=== PATIENT | female | born 1985 | race Caucasian/White ===

== ENCOUNTER 2016-12-14 20:17 | Outpatient (CLI) | payer OTHER ==
[~2016-12-14] VITALS: Ht 172.7 cm; Wt 68.0 kg
[2016-12-14 20:41] VITALS: Ht 172.7 cm; Wt 68.0 kg
[2016-12-14 20:42] VITALS: BP 108/63; PULSE 74; RESP 18
[2016-12-14 22:03] LABS: ADD SCAN DIFF NO
[2016-12-14 22:07] LABS: BASOPHILS % 0.3 % (0.0-2.0); EOSINOPHILS % 0.7 % (0.0-7.0); HEMATOCRIT 31.7 % (37.0-47.0); HEMOGLOBIN 11.1 g/dl (12.0-16.0); LYMPHOCYTES # 2.4 10^3/ul (0.8-2.9); LYMPHOCYTES % 39.3 % (15.0-51.0); MEAN CORPUSCULAR HEMOGLOBIN 31.5 pg (29.0-33.0); MEAN CORPUSCULAR VOLUME 90.1 fl (82.0-101.0); MEAN PLATELET VOLUME 11.4 fl (7.4-10.4); MONOCYTE # 0.5 10^3/ul (0.3-0.9); MONOCYTES % 8.5 % (0.0-11.0); NEUTROPHIL # 3.1 10^3/ul (1.6-7.5); NEUTROPHILS % 50.9 % (39.0-77.0); PLATELET COUNT 185 10^3/UL (140-415); RED BLOOD COUNT 3.52 10^6/ul (4.20-5.40); RED CELL DISTRIBUTION WIDTH 12.3 % (11.5-14.5); WHITE BLOOD COUNT 6.1 10^3/ul (4.8-10.8)
[2016-12-14 22:09] LABS: ADD UMIC NO; URINE BILIRUBIN (Dip) NEGATIVE (NEGATIVE); URINE BLOOD (Dip) NEGATIVE (NEGATIVE); URINE COLOR LT. YELLOW (YELLOW); URINE GLUCOSE (Dip) NEGATIVE (NEGATIVE); URINE KETONES (Dip) NEGATIVE (NEGATIVE); URINE LEUKOCYTE ESTERASE (Dip) NEGATIVE (NEGATIVE); URINE NITRITE (Dip) NEGATIVE (NEGATIVE); URINE TOTAL PROTEIN (Dip) NEGATIVE (NEGATIVE); URINE UROBILINOGEN (Dip) 0.2 E.U./dL (0.1-1.0)
[2016-12-14 22:26] LABS: ALBUMIN 3.6 g/dl (3.3-4.9); ALBUMIN/GLOBULIN RATIO 1.16; BILIRUBIN,INDIRECT 0.1 mg/dl (0-1.1); BILIRUBIN,TOTAL 0.1 mg/dl (0.2-1.3); CALCIUM 8.9 mg/dl (8.4-10.2); CREATININE 0.41 mg/dl (0.44-1.00); POTASSIUM 3.9 mmol/L (3.5-5.1); TOTAL PROTEIN 6.7 g/dl (6.1-8.1)
--- NOTE | 2016-12-14 23:55 | RADRPT ---
PROCEDURE: US Abdomen. CLINICAL INDICATION: Right upper quadrant pain. TECHNIQUE: Multiple real-time images were acquired of the patient's abdomen and retroperitoneum ut ilizing a high resolution transducer. COMPARISON: None FINDINGS: The liver demonstrates normal echogenicity and size and no focal lesions are seen. No gallstones ar e identified within the gallbladder. There is no pericholecystic fluid or gallbladder wall thickeni ng. No intra or extrahepatic biliary dilatation is seen. The common bile duct measures 2.8 mm in ma ximal dimension. The pancreas is not well seen due to bowel gas. There is no splenomegaly. No guanakito e fluid is identified. Right kidney measures 11.6 cm in length. There is mild right hydronephrosis. The left kidney measur es 11.4 cm in length and is unremarkable. The proximal aorta measures 1.3 cm in transverse dimension . The mid aorta measures 1.4 cm in transverse dimension. The inferior vena cava is unremarkable. IMPRESSION: Pancreas not well seen. Mild right hydronephrosis. Otherwise unremarkable examination. Single live intrauterine is incidentally noted. RPTAT: HJES .Emil Chong MD, MD Date Time Electronically viewed and signed by .Emil Chong MD, on 12/14/2016 23:55 .S/
[2016-12-15] MEDS ORDERED: PRENAT PO (00:57)
--- NOTE | 2016-12-15 01:11 | HP ---
Date/Time of Note Date/Time of Note DATE: 12/15/16 TIME: 00:59 OB - History Hx of Present Free Text/Dictation 31 y,o primigravida presented at triage with c/o RUQ pain rt upper back pain which was unbearable pain was 10/10 along with nausea mild diarrhea, denies febrile episodes according to patient, resting will alleviate , aggreviates after activities evaluate GB by U/S and other blood lab Past Family/Social History * Past Medical, Surgical, Family and Obstetric Histories reviewed from chart. OB Admission Exam Vital Signs Vital Signs Vital Signs Date Time Temp Pulse Resp B/P Pulse Ox O2 Delivery O2 Flow Rate FiO2 12/14/16 20:42 97.8 74 18 108/63 Room Air Physical Exam HEENT: WNL Heart: Rhythm Normal Lungs: Clear, Equal Abdomen: WNL Extremities: Normal Reflexes: Normal Cervical Dilatation: other Effacement: Other Station: Other Membranes: Intact Amniotic Fluid: Unevaluable Heart Rate: 140's Accelerations: Accelerations Present Decelerations: No Decelerations Varibility: Moderate Contractions on Admission: None Last 72 hours Lab Results CBC & BMP 12/14/16 21:54 Liver Function Test 12/14/16 21:54 Alanine Aminotransferase (ALT/SGPT) 40 Albumin 3.6 Alkaline Phosphatase 25 L Aspartate Amino Transf (AST/SGOT) 20 Direct Bilirubin 0.00 Total Protein 6.7 OB Assessment/Plan Reason for admission: other (RUQ pain with rt upper back pain) Other Assessment: pain resolved after resting Plan: Other (dis home with instruction of rest and avoid spice food rth if sx recur) IVELISSE MARTÍNEZ MD Dec 15, 2016 01:10
--- NOTE | 2016-12-15 01:12 | TRIAGE ---
OB Triage Datetime Report Generated by CPN: 12/15/2016 01:12 Datetime: 12/14/2016 22:00 Stage of : OB Triage Labor Evaluation Frequency: none Monitor Mode: External Pattern: Normal: <= 5 Contractions in 10 Minutes Resting Tone [place]: Relaxed Heart Rate FHR Baseline Rate: 140 Monitor Mode: External US Variability: Moderate 6-25 bpm Decelerations: Variable Category: Category I Comments: Appropriate for gestational age. Datetime: 12/14/2016 21:45 Stage of : OB Triage Datetime: 12/14/2016 21:02 Vaginal Exam Membrane Status: Intact Datetime: 12/14/2016 20:59 Stage of : OB Triage Labor Evaluation Frequency: none Monitor Mode: External Pattern: Normal: <= 5 Contractions in 10 Minutes Resting Tone [place]: Relaxed Heart Rate FHR Baseline Rate: 140 Monitor Mode: External US Variability: Moderate 6-25 bpm Decelerations: None Category: Category I Comments: appropriate for gestational age Pain Assessment Pain Scale: 10 Pain Presence: Intermittent Pain Type: Ache Pain Location: Abdomen; Back Pain Goal: 2 Pain Relief Measures: Comfort Measures Datetime: 12/14/2016 20:48 Assessment Type: Triage Maternal Assessment Level of Consciousness: Fully Conscious DTR's/Clonus: DTRs 2+; No Clonus Headache: Denies Blurred Vision: No Respiratory Effort: Unlabored; Regular Rhythm; Equal Expansion Breath Sounds, Left: Clear and Equal Breath Sounds, Right: Clear and Equal Nausea/Vomiting: Denies RUQ Epigastric Pain: Denies Facial Edema: None Fall Risk Assessment History of Falling: (0) No Secondary Diagnosis: (0) No Ambulatory Aid: (0) Bedrest/Nurse Assist IV Therapy: (0) No Gait: (0) Normal/Bedrest/Immobile Mental Status: (0) Oriented to Own Ability Fall Score: 0 Fall Risk Score Definition: No Risk: No action required Comment: presented to triage c_o back pain and upper right abdominal pain. 05/28. placed on efm. call light with in reach. at bedside. Datetime: 12/14/2016 20:47 Time of Arrival: 12/14/2016 20:10 EGA: 20.6 Arrived By: Ambulatory Arrived From: Home Chief Complaint: back and abdomen pain Movement: Present Contractions: Denies/Absent Rupture of Membranes: Denies Vaginal Bleeding: None Vaginal Discharge: Denies Recent Sexual Intercouse: Denies Abdominal Trauma: Not Applicable Patient Complaints: None Time Provider Notified: 12/14/2016 21:00 Provider Notified: Lashanda Initial Plan: VS, EFM, Notify MD
== END 2016-12-15 01:08 | disposition home or self-care (01) ==
LOC: OBT 20:17 → L-D 20:17 → UNDOFXCLISVC 20:17 → L-D 20:18 → OBT 20:18 → L-D 20:42 → OBT 21:27 → L-D 21:27 → UNDOADMIN 21:27 → L-D 21:28 → OBT 12-15 01:08
PROVIDERS: ATTEND Obstetrics & Gynecology
DX: O26.892 Other specified pregnancy related conditions, second trimester (principal); R10.11 Right upper quadrant pain; M54.89 Other dorsalgia; Z3A.20 20 weeks gestation of pregnancy
CPT/HCPCS: 76700; 80053; 81003; 82150; 83690; 85025; 87086; G0463

== ENCOUNTER 2016-12-21 22:55 | Inpatient (IN) | payer OTHER ==
[~2016-12-21] VITALS: Ht 163.8 cm; Wt 68.2 kg
[~2016-12-21 22:55] MED LIST: PRENAT PO
[2016-12-22 00:11] VITALS: Ht 163.8 cm; Wt 68.2 kg
[2016-12-22] MEDS ORDERED: MULTIVIT/MIN/FOLATE/IRON/PREN TAB PO SCH (09:00)
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
[2016-12-22 11:10] LABS: ADD UMIC NO; URINE BILIRUBIN (Dip) NEGATIVE (NEGATIVE); URINE BLOOD (Dip) NEGATIVE (NEGATIVE); URINE COLOR LT. YELLOW (YELLOW); URINE GLUCOSE (Dip) NEGATIVE (NEGATIVE); URINE KETONES (Dip) NEGATIVE (NEGATIVE); URINE LEUKOCYTE ESTERASE (Dip) NEGATIVE (NEGATIVE); URINE NITRITE (Dip) NEGATIVE (NEGATIVE); URINE TOTAL PROTEIN (Dip) NEGATIVE (NEGATIVE); URINE UROBILINOGEN (Dip) 0.2 E.U./dL (0.1-1.0)
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
== END 2016-12-22 12:00 | disposition home or self-care (01) | DRG 781 ==
LOC: OBT 22:55 → L-D 22:56 → OBG 12-22 00:20 → OBT 12-22 00:20
PROVIDERS: ADMIT Obstetrics & Gynecology; ATTEND Obstetrics & Gynecology
DX: O26.892 Other specified pregnancy related conditions, second trimester (principal); R11.2 Nausea with vomiting, unspecified; Z3A.22 22 weeks gestation of pregnancy
CPT/HCPCS: 81003; 87086; G0463

== ENCOUNTER 2017-01-24 16:06 | Emergency (ER) | payer OTHER ==
[~2017-01-24] VITALS: Ht 157.5 cm; Wt 70.0 kg
[2017-01-24 16:09] VITALS: Ht 157.5 cm; Wt 70.0 kg
[2017-01-24] MEDS ORDERED: ACETAMINOPHEN 500 MG TAB PO STA (16:38)
--- NOTE | 2017-01-24 17:34 | ERD ---
ER Documentation Chief Complaint Date/Time DATE: 01/24/17 TIME: 17:28 Chief Complaint 27 weeks with epistaxis early, resolved now HPI This is a 31-year-old female that presents to the ER for one episode of epistaxis that lasted 2 minutes and then resolved. Patient is currently 27 weeks . She denies any pelvic or vaginal bleeding. She has had nausea throughout her however she does not have any vomiting or diarrhea. She denies any chest pain or shortness of breath. She does not have a fever or chills. A0. She does not have any urinary frequency or dysuria. She does admit to back pain which is been going throughout her entire . No bowel incontinence. She denies any saddle like anesthesia. She denies any vaginal discharge and has had appropriate OB care. ROS 12 point review of systems was done, all negative except per HPI. Medications Home Meds Active Scripts Petrolatum,White* (Vaseline*) 5 Gm Oint.pack, 1 APPLIC TOP BID for 7 Days, PACKET Prov:YO CLARK Radha 01/24/17 Reported Medications Multivit/Min/Fol Ac/Iron/Pren* ( S*) 1 Tab Tab, 1 TAB PO DAILY, TAB 12/15/16 Allergies Allergies: Coded Allergies: No Known Drug Allergies (Verified Allergy, Unknown, 12/22/16) allergic to dust PMhx/Soc Medical and Surgical Hx: pt denies Medical Hx, pt denies Surgical Hx Hx Alcohol Use: No Hx Substance Use: No Hx Tobacco Use: No Physical Exam Vitals Vital Signs Date Time Temp Pulse Resp B/P Pulse Ox O2 Delivery O2 Flow Rate FiO2 01/24/17 16:09 98.1 64 20 112/64 99 Physical Exam GENERAL: The patient is well developed and appropriate for usual state of health , in no apparent distress. HEENT: Atraumatic. Conjunctivae are pink. Pupils equal, round, and reactive to light. Normal nasal nares, no septal hematoma.The oropharynx is clear with no erythema or exudates. CHEST: Clear to auscultation bilaterally. There are no rales, wheezes or rhonchi. HEART: Regular rate and rhythm. No murmurs, clicks, rubs or gallops. ABDOMEN: Soft, nontender and nondistended. Good bowel sounds. No rebound or guarding. No gross peritonitis. No gross organomegaly or masses. No Fuentes sign or McBurney point tenderness. BACK: No midline or flank tenderness. NEURO: Alert and oriented. Cranial nerves II through XII are intact. Results 24 hrs Current Medications Medications (Trade) Dose Ordered Sig/Franci Route PRN Reason Start Time Stop Time Status Last Admin Dose Admin Acetaminophen (Tylenol Tab) 1,000 mg ONCE STAT PO 01/24/17 16:38 01/24/17 16:40 DC Procedures/MDM This is a 31-year-old female presents to the ER for one episode of epistaxis. Bleeding was completely resolved. This is likely secondary to warm weather and dry nasal nares. Upon discharge patient stated that she felt as if the baby was not moving as much, patient was insistent on ultrasound. Ultrasound was ordered. Patient denies any pelvic pain, vaginal bleeding or any other abnormality regarding her . Patient is afebrile and well appearing, her ultz was normal. Patient was give Tylenol for her ongoing back pain in the ER without any complications. Suspicion for UTI or pyelonephritis is low as patient does not have any urinary complaints. Patient is stable for outpatient f /u she needs to f/u with her OB or return to ER sooner if symptoms worsen. My medical decision making shared with the patient he understands and agrees with plan Departure Diagnosis: Primary Impression: Epistaxis Condition: Stable YO CLARK Jan 24, 2017 17:34
--- NOTE | 2017-01-24 18:00 | RADRPT ---
PROCEDURE: Obstetrical ultrasound greater than 14 weeks CLINICAL INDICATION: Decreased movement TECHNIQUE: Real time sonographic imaging of the gravid uterus is performed transabdominally and mu ltiple static mehta scale and Doppler images are submitted for review as are measurements. The image s are reviewed on the PACS. COMPARISON: No relevant exams are available FINDINGS: There is a single living intrauterine gestation in cephalic presentation. The heart beat is estimated at 140 bpm. The measurements are as follows: BPD:7.04 cm HC:25.59 cm AC:22.94 cm FL:5.23 cm Estimated gestational age is 27 weeks 6 days. The estimated date of delivery is 04/19/2017. The estimated weight is 1099 grams. Placenta is posterior and grade 1. There is no evidence of placenta previa or abruption.. The amniotic fluid is qualitatively normal. RPTAT:HJJR IMPRESSION: 1. Single viable intrauterine gestation estimated at 27 weeks 6 days with the estimated date of deli very 04/19/2017. 2. Posterior grade 1 placenta without abruption. Physician Denisse Date Time Electronically viewed and signed by Physician Denisse on 01/24/2017 17:59 /
[2017-01-24] MEDS ORDERED: PETR5OIN3 TOP (18:02)
[2017-01-24 18:42] VITALS: BP 114/67; PULSE 77; RESP 20; TEMP 98.1
== END 2017-01-24 18:36 | disposition home or self-care (01) ==
LOC: FTE 16:06
DX: O99.89 Other specified diseases and conditions complicating pregnancy, childbirth and the puerperium (principal); R04.0 Epistaxis; Z3A.27 27 weeks gestation of pregnancy
CPT/HCPCS: 76805

== ENCOUNTER 2017-04-20 08:30 | Inpatient (IN) | payer OTHER ==
[~2017-04-20] VITALS: Ht 170.2 cm; Wt 82.3 kg
[~2017-04-20 08:30] MED LIST changes: +PETR5OIN3 TOP
[2017-04-20 09:58] VITALS: Ht 170.2 cm; Wt 82.3 kg
[2017-04-20 09:59] VITALS: BP 114/74; PULSE 95; RESP 20
--- NOTE | 2017-04-20 10:05 | HP ---
Date/Time of Note Date/Time of Note DATE: 04/20/17 TIME: 09:57 OB - History Hx of Present Free Text/Dictation 31 y.o primigravida at 39weeks here for induction of labor GBS neg patient had unevenful course except minor problems cervidil will be used for induction Chief Complaint: for induction Estimated Due Date: Apr 27, 2017 : 1 Para: 0 Spontaneous : 0 Therapeutic : 0 Care: Good Care Ultrasounds: Normal mid trimester US Obstetrical Complications: None Medical Complications: None Past Family/Social History * Past Medical, Surgical, Family and Obstetric Histories reviewed from chart. Blood Type: A+ Rubella: immune RPR/VDRL: Negative GBS Status: Negative HBsAG: Negative OB Admission Exam Physical Exam HEENT: WNL Heart: Rhythm Normal Lungs: Clear, Equal Abdomen: WNL Extremities: Edema (=== pedal) Reflexes: Normal Cervical Dilatation: None Effacement: 0% Station: -3 Membranes: Intact Amniotic Fluid: Unevaluable Heart Rate: 140's Accelerations: Accelerations Present Decelerations: No Decelerations Varibility: Moderate Contractions on Admission: None OB Assessment/Plan Reason for admission: induction of labor Induction Method: per Misoprostol Protocol IVELISSE MARTÍNEZ MD Apr 20, 2017 10:04
[2017-04-20] MEDS ORDERED: DINOPROSTONE 10 MG VAG SUPP VAG ONE (10:30)
[2017-04-20] MEDS ORDERED: OXYTOCIN 30 UNITS/LR 500 ML IV PRN (10:30)
[2017-04-20] MEDS ORDERED: LACTATED RINGER'S 1,000 ML IV PRN (10:30)
[2017-04-20] MEDS ORDERED: IBUPROFEN 600 MG TAB PO PRN (10:30)
[2017-04-20] MEDS ORDERED: BUTORPHANOL 2 MG INJ IV PRN ×2 (10:30)
[2017-04-20] MEDS ORDERED: CARBOPROST 250 MCG INJ IM PRN (10:30)
[2017-04-20] MEDS ORDERED: METHYLERGONOVINE 0.2 MG INJ IM PRN (10:30)
[2017-04-20] MEDS ORDERED: OXYTOCIN 30 UNITS/LR 500 ML IV SCH ×2 (10:30)
[2017-04-20] MEDS ORDERED: MISOPROSTOL 200 MCG TAB PR PRN (10:30)
[2017-04-20] MEDS ORDERED: LIDOCAINE 1% (MPF) 30 ML INJ INJ PRN (10:30)
[2017-04-20] MEDS ORDERED: DINOPROSTONE 10 MG VAG SUPP ONE (10:33)
[2017-04-20] MEDS: LACTATED RINGER'S 1,000 ML IV SCH ×3 (10:49→23:03)
[2017-04-20 10:55] LABS: BASOPHILS % 0.2 % (0.0-2.0); EOSINOPHILS % 0.2 % (0.0-7.0); HEMATOCRIT 35.3 % (37.0-47.0); HEMOGLOBIN 12.5 g/dl (12.0-16.0); LYMPHOCYTES # 1.6 10^3/ul (0.8-2.9); LYMPHOCYTES % 24.1 % (15.0-51.0); MEAN CORPUSCULAR HEMOGLOBIN 31.6 pg (29.0-33.0); MEAN CORPUSCULAR HGB CONC 35.4 g/dl (32.0-37.0); MEAN CORPUSCULAR VOLUME 89.4 fl (82.0-101.0); MEAN PLATELET VOLUME 12.1 fl (7.4-10.4); MONOCYTE # 0.5 10^3/ul (0.3-0.9); MONOCYTES % 7.8 % (0.0-11.0); NEUTROPHILS % 67.2 % (39.0-77.0); PLATELET COUNT 176 10^3/UL (140-415); RED BLOOD COUNT 3.95 10^6/ul (4.20-5.40); RED CELL DISTRIBUTION WIDTH 13.3 % (11.5-14.5); WHITE BLOOD COUNT 6.4 10^3/ul (4.8-10.8)
[2017-04-20 11:00] LABS: ALBUMIN 3.5 g/dl (3.3-4.9); ALBUMIN/GLOBULIN RATIO 1.09; BILIRUBIN,INDIRECT 0.1 mg/dl (0-1.1); BILIRUBIN,TOTAL 0.1 mg/dl (0.2-1.3); CALCIUM 9.1 mg/dl (8.4-10.2); CREATININE 0.5 mg/dl (0.44-1.00); POTASSIUM 3.9 mmol/L (3.5-5.1); TOTAL PROTEIN 6.7 g/dl (6.1-8.1)
[2017-04-20 11:02] LABS: INR 0.92; PROTIME 12.4 Sec (12.2-14.2)
[2017-04-20 11:03] LABS: PARTIAL THROMBOPLASTIN TIME 27.4 Sec (25.0-35.0)
[2017-04-20 11:28] LABS: ADD UMIC NO; UR ASCORBIC ACID NEGATIVE (NEGATIVE); UR BACTERIA FEW /HPF (NONE SEEN); UR BILIRUBIN (Dip) NEGATIVE (NEGATIVE); UR BLOOD (Dip) NEGATIVE (NEGATIVE); UR CLARITY SLIGHTLY CLOUDY (CLEAR); UR COLOR YELLOW (YELLOW); UR GLUCOSE (Dip) NEGATIVE (NEGATIVE); UR KETONES (Dip) NEGATIVE (NEGATIVE); UR LEUKOCYTE ESTERASE (Dip) NEGATIVE Leu/ul (NEGATIVE); UR NITRITE (Dip) NEGATIVE (NEGATIVE); UR RBC 0 /HPF (0-5); UR SPECIFIC GRAVITY (Dip) 1.009 (1.003-1.030); UR TOTAL PROTEIN (Dip) NEGATIVE (NEGATIVE); UR UROBILINOGEN (Dip) NEGATIVE (NEGATIVE)
[2017-04-20] MEDS ORDERED: FENTAnyl 2MCG/ML-ROPIV 0.2% 100 ML ONE (17:28)
[2017-04-20] MEDS ORDERED: NALOXONE (0.4 MG/ML) INJ IV PRN (18:00)
[2017-04-20] MEDS ORDERED: ONDANSETRON 4 MG INJ IV PRN (18:00)
[2017-04-20] MEDS ORDERED: DIPHENHYDRAMINE 50 MG INJ IV PRN (18:00)
--- NOTE | 2017-04-20 23:03 | RADRPT ---
PROCEDURE: Obstetrical ultrasound. CLINICAL INDICATION: , evaluation. Pelvic pain. TECHNIQUE: Transabdominal sonographic images of the uterus obtained after first trimester , greater than 14 weeks gestation. Single intrauterine gestation present. COMPARISON: 02/12/2017 FINDINGS: Single intrauterine gestation. There is a cephalic presentation. Measurements were made in order to determine age. The results are as follows: BPD = 38 weeks 1 day(s) HC = 37 weeks 6 day(s) AC = 38 weeks 2 day(s) FL = 38 weeks 0 day(s) Heart rate = 133 beats per minute The placenta is posterior - fundal. There is no evidence for an abruption or placenta previa. Ovaries are not visualized. IMPRESSION: Single intrauterine gestation of approximately 38 weeks 1 days by ultrasound criteria. [place] estimated weight = 3405 g; 47 percentile for gestational age of 39 weeks 0 days. RPTAT: AADD .Sukhi Agarwal MD, MD Date Time Electronically viewed and signed by .Sukhi Agarwal MD, on 04/20/2017 23:03 .B/
[2017-04-21] MEDS: FENTAnyl 2MCG/ML-ROPIV 0.2% 100 ML BAG EPI SCH ×2 (00:20→07:31)
[2017-04-21] MEDS ORDERED: ACETAMINOPHEN 325 MG TAB PO PRN (03:30)
[2017-04-21] MEDS ORDERED: AMPICILLIN 2 GM/NS (PMX) 100 ML ONE (04:05)
[2017-04-21] MEDS: LACTATED RINGER'S 1,000 ML IV SCH (04:16)
[2017-04-21] MEDS ORDERED: AMPICILLIN 2 GM/NS (PMX) 100 ML IVPB ONE (04:30)
[2017-04-21] MEDS ORDERED: AMPICILLIN 1 GM/NS (PMX) 50 ML IVPB SCH (05:00)
[2017-04-21] MEDS ORDERED: FENTAnyl 2MCG/ML-ROPIV 0.2% 100 ML BAG EPI SCH (06:30)
[2017-04-21] MEDS ORDERED: DIPHENHYDRAMINE 50 MG INJ IV PRN (06:30)
[2017-04-21] MEDS ORDERED: NALOXONE (0.4 MG/ML) INJ IV PRN (06:30)
[2017-04-21] MEDS ORDERED: ONDANSETRON 4 MG INJ IV PRN ×2 (06:30→13:00)
[2017-04-21] MEDS ORDERED: MINERAL OIL LIGHT 10 ML VIAL ONE (08:40)
[2017-04-21] MEDS: MINERAL OIL LIGHT 10 ML VIAL TOP PRN ×2 (09:31→09:53)
[2017-04-21] MEDS ORDERED: CEFAZOLIN 2 GM/50 ML (PMX) 50 ML IVPB SCH (10:50)
[2017-04-21] MEDS ORDERED: LACTATED RINGER'S 1,000 ML IV* SCH (12:37)
[2017-04-21] MEDS ORDERED: OXYTOCIN 30 UNITS/LR 500 ML IV PRN (13:00)
[2017-04-21] MEDS ORDERED: CARBOPROST 250 MCG INJ IM PRN (13:00)
[2017-04-21] MEDS ORDERED: LANOLIN 7 GM TUBE TOP PRN (13:00)
[2017-04-21] MEDS ORDERED: OXYCODONE/ASPIRIN (4.88/325) TAB PO PRN (13:00)
[2017-04-21] MEDS ORDERED: ZOLPIDEM 5 MG TAB PO PRN (13:00)
[2017-04-21] MEDS ORDERED: MISOPROSTOL 200 MCG TAB PR PRN (13:00)
[2017-04-21] MEDS ORDERED: WITCH HAZEL/GLYCERIN PAD PR PRN (13:00)
[2017-04-21] MEDS ORDERED: BENZOCAINE 20% 56 ML SPRAY TOP PRN (13:00)
[2017-04-21] MEDS ORDERED: METHYLERGONOVINE 0.2 MG INJ IM PRN (13:00)
[2017-04-21 13:30] VITALS: BP 121/73; PULSE 94; RESP 20
[2017-04-21] MEDS: OXYTOCIN 30 UNITS/LR 500 ML IV SCH ×2 (15:37→16:37)
[2017-04-21 16:00] VITALS: BP 126/78; PULSE 100; RESP 16
[2017-04-21] MEDS: IBUPROFEN 600 MG TAB PO SCH ×2 (17:55→23:58)
[2017-04-21 19:45] VITALS: BP 119/61; PULSE 82; RESP 18
--- NOTE | 2017-04-21 20:22 | LDN ---
Date/Time of Note Date/Time of Note DATE: 04/21/17 TIME: 20:20 Delivery Summary normal vaginal delivery Weeks of Gestation [id number] Placenta Delivered: Spontaneously Meconium: none Episiotomy: Yes Indication for episiotomy bleeding from vaginal laceration during ironing Perineal laceration: 0 Laceration repair: episiotomy repaired with 00 ch gut Anesthesia type: Epidural Sponge & Needle done & correct: Yes All needle counts correct: Yes Any foreign bodies felt in the: No Problems: Infant Delivery Information Sex Infant Sex: male Apgars 1 Minute: 8 5 Minute: 9 Suctioning Nose & mouth suctioned at carlos: Yes Delee suction performed: No Umbilical Cord Umbilical cord with: 3 Vessels Cord presentations: no nuchal cord Cord Blood was obtained: Yes Mother & Baby Disposition Disposition Mom & Baby to Maternity; Good: Yes Mom transferred to: Other () Baby to NICU: No IVELISSE MARTÍNEZ MD Apr 21, 2017 20:22
[2017-04-21] MEDS: SENNA/DOCUSATE NA (8.6MG/50MG) TAB PO SCH (21:53)
[2017-04-22] VITALS: BP 112/65; PULSE 75; RESP 18
[2017-04-22 04:08] VITALS: BP 92/52; PULSE 79; RESP 18
[2017-04-22] MEDS: IBUPROFEN 600 MG TAB PO SCH ×4 (05:45→23:37)
[2017-04-22 07:52] LABS: BASOPHILS % 0.2 % (0.0-2.0); EOSINOPHILS # 0.1 10^3/ul (0.0-0.5); EOSINOPHILS % 0.3 % (0.0-7.0); HEMATOCRIT 27.9 % (37.0-47.0); HEMOGLOBIN 9.5 g/dl (12.0-16.0); LYMPHOCYTES # 1.8 10^3/ul (0.8-2.9); MEAN CORPUSCULAR HEMOGLOBIN 31.1 pg (29.0-33.0); MEAN CORPUSCULAR HGB CONC 34.1 g/dl (32.0-37.0); MEAN CORPUSCULAR VOLUME 91.5 fl (82.0-101.0); MEAN PLATELET VOLUME 12.3 fl (7.4-10.4); MONOCYTE # 0.9 10^3/ul (0.3-0.9); MONOCYTES % 5.7 % (0.0-11.0); NEUTROPHILS % 81.1 % (39.0-77.0); PLATELET COUNT 132 10^3/UL (140-415); RED BLOOD COUNT 3.05 10^6/ul (4.20-5.40); RED CELL DISTRIBUTION WIDTH 13.4 % (11.5-14.5); WHITE BLOOD COUNT 15.3 10^3/ul (4.8-10.8)
[2017-04-22 08:00] VITALS: BP 117/76; PULSE 75; RESP 18
--- NOTE | 2017-04-22 08:09 | PN ---
Date/Time of Note Date/Time of Note DATE: 04/22/17 TIME: 08:07 OB Subjective Subjective Subjective c/o ep pain OB Objective Objective Objective vss afebrile fundus firm lochia min calf neg for tenderness OB Assessment/Plan Other Assessment: stable post vaginal delivery #! Other plan: discharge home in am IVELISSE MARTÍNEZ MD Apr 22, 2017 08:09
[2017-04-22] MEDS: SENNA/DOCUSATE NA (8.6MG/50MG) TAB PO SCH ×2 (10:09→21:12)
[2017-04-22 16:00] VITALS: BP 109/71; PULSE 80; RESP 16
[2017-04-22 20:00] VITALS: BP 106/67; PULSE 82; RESP 18
[2017-04-23] MEDS: OXYCODONE/ASPIRIN (4.88/325) TAB PO PRN ×2 (01:59→09:50)
[2017-04-23 04:00] VITALS: BP 97/50; PULSE 75; RESP 18
[2017-04-23] MEDS: IBUPROFEN 600 MG TAB PO SCH ×2 (05:34→11:53)
[2017-04-23 08:00] VITALS: BP 121/72; PULSE 72; RESP 18
[2017-04-23] MEDS ORDERED: DIPHTH/TET/ACEL PERTUSS (ADULT) 0.5 ML VIAL IM* ONE (09:00)
[2017-04-23] MEDS: SENNA/DOCUSATE NA (8.6MG/50MG) TAB PO SCH (09:49)
--- NOTE | 2017-04-23 10:39 | PD.PPDC ---
REGULAR SENIOR CARE PROVIDER Discharge Instruction Diagnosis Final Diagnosis: s/p normal vaginal delivery Condition Patient Condition: Stable Diet Diet: Resume Regular Diet Activity/Restrictions Activity: May Shower Restrictions: No Lifting No Sexual Activity Nothing in the Vagina No [place] [address] No Tampons, douche Follow-up Follow-up with Physician: 6, Week/Weeks Return to clinic for PAYROLL ACCOUNTING MANAGER Instructions: Fever greater than 101 Chills Worsening abdominal pain Excessive Vaginal Bleeding More than 2 pads per hour Unable to tolerate diet OB Instructions: Breast Tenderness Depression Blurried Vision IVELISSE MARTÍNEZ MD Apr 23, 2017 10:39
--- NOTE | 2017-04-23 10:43 | DS ---
Date/Time of Note Date/Time of Note DATE: 04/23/17 TIME: 10:42 Obstetrical Discharge Record Final Diagnosis Final Diagnosis: Term delivered Vaginal Delivery Obstetrical Delivery: Spontaneous, Episiotomy, Repaired Complications Induction: Yes Rupture of Membranes: No Condition on Discharge Physical Assessment Last Vitals: vss afebrile Voiding: Yes Bowel Movement: Yes Breast: Soft, non-tender Fundus: Firm Episiotomy: ok Calf Tenderness: No Patient Condition: Stable IVELISSE MARTÍNEZ MD Apr 23, 2017 10:43
== END 2017-04-23 15:58 | disposition home or self-care (01) | DRG 775 ==
LOC: L-D 08:57 → PP1 04-21 13:22
PROVIDERS: ADMIT Obstetrics & Gynecology; ATTEND Obstetrics & Gynecology
PROC: 0UQGXZZ Repair Vagina, External Approach (ICD-10-PCS; 2017-04-20)
PROC: 0W8NXZZ Division of Female Perineum, External Approach (ICD-10-PCS; 2017-04-20)
PROC: 10E0XZZ Delivery of Products of Conception, External Approach (ICD-10-PCS; principal; 2017-04-20 08:30)
DX: O71.4 Obstetric high vaginal laceration alone (principal); Z37.0 Single live birth; Z3A.39 39 weeks gestation of pregnancy
CPT/HCPCS: 62319; 76815; 80053; 81001; 81003; 84560; 85025; 85384; 85610; 85730; 86592; 86900; 86901; 87340; 90715; J0290; J0690; J1200; J2590; J3010; J7120